=== PATIENT | female | born 2000 | race Two or more races ===

== ENCOUNTER 2022-09-13 08:50 | Emergency (ER) | payer OTHER ==
[~2022-09-13] VITALS: Ht 154.9 cm; Wt 82.0 kg
[2022-09-13 09:28] LABS: Urine Bacteria NONE SEEN /hpf (None Seen); Urine Blood TRACE /uL (Negative); Urine Hyaline Cast FEW /lpf (0 - 2); Urine Mucus FEW (None Seen); Urine Specific Gravity 1.026 (1.001-1.035); Urine WBC 1 /hpf (0 - 5)
[2022-09-13 10:03] VITALS: BP 130/85
[2022-09-13] MEDS ORDERED: ACETAMINOPHEN 500 MG TAB PO ONE (11:00)
[2022-09-13] MEDS ORDERED: IBUP800T27 PO (12:17)
[2022-09-13 12:42] LABS: Basophils # (auto) 0 10 ^3/uL (0-0.2); Basophils % (auto) 0.5 % (0.0-2.0); Eosinophils # (auto) 0 10 ^3/uL (0-0.8); Monocytes # (auto) 0.8 10 ^3/uL (0-1.3); Neutrophils # (auto) 6.9 10 ^3/uL (1.6-8.6)
[2022-09-13 12:44] LABS: Eosinophils % (auto) 0.1 % (0.0-7.0); Hemoglobin 12.5 g/dL (12.2-16.2); Lymphocytes # (auto) 1.3 10 ^3/uL (0.4-5.4); Lymphocytes % (auto) 14.1 % (10.0-50.0); Mean Corpuscular Hemoglobin 25.8 pg (28.0-32.0); Mean Corpuscular Hgb Conc. 33.8 g/dL (32.0-36.0); Mean Corpuscular Volume 76.3 fL (80.0-100.0); Monocytes % (auto) 9.1 % (0.0-12.0); Neutrophils % (auto) 76.2 % (37.0-80.0); Nucleated Red Blood Cells % 0.1 %; Red Blood Cells 4.85 10^6/uL (4.0-5.20); Red Cell Distribution Width 14.4 % (11.8-14.3)
[2022-09-13 13:17] LABS: BUN/Creatinine Ratio 15.1; Calcium 9.7 mg/dL (8.5-10.1); Potassium 3.9 mmol/L (3.5-5.1)
== END 2022-09-13 12:21 | disposition home or self-care (01) ==
LOC: ER 08:50
DX: R10.2 Pelvic and perineal pain (principal); Z88.8 Allergy status to other drugs, medicaments and biological substances; Z87.42 Personal history of other diseases of the female genital tract
CPT/HCPCS: 36415; 76830; 76856; 80048; 81001; 81025; 85025

== ENCOUNTER 2024-02-27 08:41 | Emergency (ER) | payer MEDICAID, OTHER ==
[~2024-02-27] VITALS: Ht 165.1 cm; Wt 81.6 kg
[~2024-02-27 08:41] MED LIST: IBUP-1456 PO
[2024-02-27 09:36] LABS: Basophils # (auto) 0.1 10 ^3/uL (0-0.2); Eosinophils # (auto) 0.2 10 ^3/uL (0-0.8); Eosinophils % (auto) 2.3 % (0.0-7.0); Monocytes # (auto) 0.8 10 ^3/uL (0-1.3)
[2024-02-27 09:38] LABS: Basophils % (auto) 1.1 % (0.0-2.0); Hematocrit 39.4 % (36.0-46.0); Hemoglobin 13.2 g/dL (12.2-16.2); Lymphocytes # (auto) 3.1 10 ^3/uL (0.4-5.4); Lymphocytes % (auto) 41.2 % (10.0-50.0); Mean Corpuscular Hemoglobin 26.4 pg (28.0-32.0); Mean Corpuscular Hgb Conc. 33.6 g/dL (32.0-36.0); Mean Corpuscular Volume 78.7 fL (80.0-100.0); Monocytes % (auto) 11.1 % (0.0-12.0); Neutrophils # (auto) 3.3 10 ^3/uL (1.6-8.6); Neutrophils % (auto) 44.3 % (37.0-80.0); Red Cell Distribution Width 13.4 % (11.8-14.3); White Blood Cell 7.5 10^3/uL (4.4-10.8)
[2024-02-27 09:56] LABS: Alanine Aminotransferase 83 U/L (7-40); Alkaline Phosphatase 70 U/L (46-116); Anion Gap 3 (5-15); Aspartate Aminotransferase 51 U/L (13-40); BUN/Creatinine Ratio 12.3 (10.0-20.0); Blood Urea Nitrogen 8 mg/dL (9-23); Calcium 9.8 mg/dL (8.5-10.1); Carbon Dioxide 28 mmol/L (20-30); Chloride 107 mmol/L (98-107); Glucose 104 mg/dL (74-106); Potassium 3.6 mmol/L (3.5-5.1); Sodium 138 mmol/L (136-145)
[2024-02-27 09:57] LABS: Bilirubin, Total 0.3 mg/dL (0.2-1.0); Total Protein 8.2 g/dL (5.7-8.2)
[2024-02-27 10:36] LABS: Lipase 42 U/L (12-53)
[2024-02-27 11:01] LABS: Urine Bacteria FEW /hpf (None Seen); Urine Blood TRACE /uL (Negative); Urine Clarity Clear (Clear); Urine Color Yellow (Yellow); Urine Mucus FEW (None Seen); Urine Protein, UAD TRACE (Negative); Urine Specific Gravity 1.029 (1.001-1.035); Urine Urobilinogen Normal (Negative); Urine WBC 8 /hpf (0 - 5)
[2024-02-27] MEDS ORDERED: ZOFR4T PO (12:28)
[2024-02-27] MEDS ORDERED: CIPR-173 PO (12:28)
[2024-02-27 13:04] VITALS: BP 133/85; PULSE 60; RESP 18; TEMP 97.8; O2SAT 100
== END 2024-02-27 13:05 | disposition home or self-care (01) ==
LOC: ER 08:41
DX: N39.0 Urinary tract infection, site not specified (principal); J45.909 Unspecified asthma, uncomplicated; Z32.02 Encounter for pregnancy test, result negative; Z88.6 Allergy status to analgesic agent
CPT/HCPCS: 36415; 74176; 80053; 81001; 81025; 83690; 85025

== ENCOUNTER 2024-09-10 18:33 | Emergency (ER) | payer MEDICAID ==
[~2024-09-10] VITALS: Ht 157.5 cm; Wt 79.9 kg
[~2024-09-10 18:33] MED LIST changes: +CIPR-173 PO; +ZOFR4T PO
[2024-09-10 20:05] VITALS: BP 124/68; PULSE 84; RESP 17; TEMP 98.6; O2SAT 99
[2024-09-10 20:58] LABS: COVID19 ANTIGEN SOFIA FIA NEGATIVE (NEGATIVE)
[2024-09-10 20:59] LABS: Rapid Influenza A Negative (Negative); Rapid Influenza B Negative (Negative)
--- NOTE | 2024-09-10 21:05 | ED.PDOC ---
Eye-HPI HPI Comments THIS IS A 11 WEEK 23-YEAR-OLD FEMALE PRESENTS TO THE ED WITH FLU-LIKE SYMPTOMS X3 DAYS. PATIENT REPORTS DICKINSON, NASAL CONGESTION AND COUGH.. HAS NOT TAKEN ANYTHING [id number] SHE STATES SHE IS SCARED BECAUSE SHE HAS 13 WEEKS . SHE DENIES VOMITING, DIARRHEA, CHEST PAIN, DIFFICULTY BREATHING, SHORTNESS OF BREATH, ABDOMINAL PAIN, VAGINAL BLEEDING, OR VAGINAL SPOTTING. Chief Complaint: Flu like Time Seen by MD: 18:49 Primary Care Provider: UNK Reviewed Notes: Nurses Notes, Medications, Allergies Allergies: Coded Allergies: Azithromycin (Verified Allergy, Unknown, 09/10/24) Home Meds Active Scripts Fluticasone Propionate (Nasal) (Flonase Allergy Relief) 50 Mcg/Act Spr, 50 MCG NA BID for 14 Days, #1 INJ 1 SPRAY NASALLY IN EACH NOSTRIL TWICE DAILY Prov:JOHNATHON CRISOSTOMO DENITRATOR OPERATOR 09/10/24 Ciprofloxacin Hcl (Cipro) 500 Mg Tab, 1 TAB PO BID, #14 TAB Prov:MANJEET WILSON MD 02/27/24 Ondansetron Odt 4MG Tab (ZOFRAN PO) 4 Mg Tb, 4 MG PO Q8HP PRN for 5 Days, #15 TAB ODT TAB-DISSOLVE IN MOUTH, THEN SWALLOW Prov:MANJEET WILSON MD 02/27/24 Ibuprofen (Ibuprofen) 800 Mg Tab, 1 TAB PO TID, #30 TAB Prov:AMY RODRIGUEZ 09/13/22 Information Source: Patient Mode of Arrival: Ambulatory Past Medical History PAST MEDICAL HISTORY: Asthma, Liver Surgical History: Denies all surgeries INFORMATION SYSTEMS OPERATOR History: Denies all INFORMATION SYSTEMS OPERATOR Hx Family History Family History: Reviewed,noncontributory to illness Social History Smoker: Non-Smoker Alcohol: Denies ETOH Use Drugs: Denies Drug Use Lives In: Home Constitutional: reports: fever; denies: chills, diaphoresis, fatigue, malaise, sweats, weakness, others EENTM: reports: nasal discharge; denies: blurred vision, double vision, ear bleeding, ear discharge, ear drainage, ear pain, ear ringing, eye pain, eye redness, hearing loss, mouth pain, mouth swelling, nose bleeding, nose congestio n, nose pain, photophobia, tearing, throat pain, throat swelling, voice changes, others Respiratory: reports: cough; denies: hemoptysis, orthopnea, SOB at rest, shortness of breath, SOB with excertion, stridor, wheezing, others Cardiovascular: denies: chest pain, dizzy spells, diaphoresis, Dyspnea on exertion, edema, irregular heart beat, left arm pain, lightheadedness, palpitations, PND, syncope, others Gastrointestinal: reports: others (HEART BURN); denies: abdomen distended, abdominal pain, blood streaked bowels, constipated, diarrhea, dysphagia, difficulty swallowing, hematemesis, melena, nausea, poor appetite, poor fluid intake, rectal bleeding, rectal pain, vomiting Genitourinary: denies: abnormal vagina bleeding, burning, dyspareunia, dysuria, flank pain, frequency, hematuria, incontinence, pain, , vagina discharge, urgency, others Neurological: denies: dizziness, fainting, headache, left sided numbness, left sided weakness, numbness, paresthesia, pre-existing deficit, right sided numbness, right sided weakness, seizure, speech problems, tingling, tremors, weakness, others Musculoskeletal: denies: back pain, gout, joint pain, joint swelling, muscle pain, muscle stiffness, neck pain, others Integumetry: denies: bruises, change in color, change in hair/nails, dryness, laceration, lesions, lumps, rash, wounds, others Allergic/Immunocompromised: denies: Difficulty Healing, Frequent Infections, Hives, Itching, others Hematologic/Lymphatic: denies: anemia, blood clots, easy bleeding, easy bruising, swollen glands, others Endocrine: denies: excessive hunger, excessive sweating, excessive thirst, excessive urination, flushing, intolerance to cold, intolerance to heat, unexplained weight gain, unexplained weight loss, others Psychiatric: denies: anxiety, bipolar disorder, depression, hopeless, panic disorder, schizophrenia, sleepless, suicidal, others Physical Exam General Appearance: No Apparent Distress, Normal HEENT: Pharyngeal Erythema, TMs Normal Neck: Full Range of Motion, Non-Tender, Normal, Normal Inspection Respiratory: Lungs Clear, No Respiratory Distress, Normal Breath Sounds Cardiovascular: No Murmur, Normal Peripheral Pulses, Regular Rate/Rhythm Breast Exam: Deferred Gastrointestinal: No Organomegaly, Non Tender, No Pulsatile Mass, Normal Bowel Sounds, Soft Genitalia: Deferred Pelvic: Deferred Rectal: Deferred Extremities: Normal capillary refill, Normal inspection, Normal range of motion, Non-tender, No pedal edema Musculoskeletal : Apperance: Normal Neurologic: Alert, communications station manager II-XII nml as Tested, No Motor Deficits, Normal Affect, Normal Mood, No Sensory Deficits Cerebellar Function: Normal Reflexes: Normal Skin: Dry, Normal Color, Warm Lymphatic: No Adenopathy Was a procedure done? Was a procedure done?: No EENT DIFF Eye: N/A Sore Throat: Viral Pharyngitis X-Ray, Labs, Meds, VS Vital Signs Date Time Temp Pulse Resp B/P (MAP) Pulse Ox O2 Delivery O2 Flow Rate FiO2 09/10/24 20:05 84 17 99 Room Air 09/10/24 20:05 98.6 84 17 124/68 (86) 99 98.6 09/10/24 18:51 98.6 98 20 125/96 (106) 100 Lab Test 09/10/24 21:01 09/10/24 20:23 Range/Units Urine Color Light-yellow Yellow Urine Clarity Clear Clear Urine pH 6.5 5.0-9.0 Urine Specific [place] 1.015 1.001-1.035 Urine Protein Negative Negative Urine Ketones Negative Negative Urine Blood Negative Negative /uL Urine Nitrite Negative Negative Urine Bilirubin Negative Negative Urine Urobilinogen Normal Negative mg/dL Urine Leukocyte Esterase Negative Negative /uL Urine RBC <1 0 - 4 /hpf Urine WBC <1 0 - 5 /hpf Urine Squamous Epithelial Cells Few <5 /hpf Urine Bacteria Few H None Seen /hpf Urine Glucose Normal Normal mg/dL Influenza Type A Antigen Negative Negative Influenza Type B Antigen Negative Negative SARS-CoV-2 Antigen (Rapid) Negative NEGATIVE X-Ray, Labs, Meds, VS Comment FLU AND COVID SWABS NEGATIVE LIKELY ACUTE NASOPHARYNGITIS UA SHOWS POSITIVE BACTERIA. WE WILL TREAT FOR INFECTION. WE WILL START PATIENT ON KEFLEX 500 MG TWICE DAILY X5 DAYS. ADVISED TO REST INCREASE P.O. FLUIDS WITH ELECTROLYTES. FOLLOW UP WITH HER PCP IN 2-3 DAYS NECESSARY. ER RETURN PRECAUTIONS GIVEN. PATIENT AGREES WITH DISCHARGE PLAN OF CARE. Time of 1ST Reevaluation: 21:56 Reevaluation 1ST: Improved Patient Education/Counseling: Diagnosis, Treatment, Prognosis, Need For Follow Up Family Education/Counseling: No Family Present Departure 1 Departure Time of Disposition: 21:56 Impression: Primary Impression: Nasopharyngitis acute Additional Impression: Acute cystitis Qualified Codes: N30.00 - Acute cystitis without hematuria Disposition: HOME / SELF CARE / HOMELESS Condition: Stable e-Prescriptions Cephalexin Monohydrate (Cephalexin) 500 Mg Cap 1 CAP PO BID for 6 Days, #20 CAP Prov: JOHNATHON CRISOSTOMO 09/10/24 Fluticasone Propionate (Nasal) (Flonase Allergy Relief) 50 Mcg/Act Spr 50 MCG NA BID for 14 Days, #1 INJ 1 SPRAY NASALLY IN EACH NOSTRIL TWICE DAILY Prov: JOHNATHON CRISOSTOMO 09/10/24 Discharged With: Self Critical Care Note Critical Care Time?: No Stability Stability form required: JOHNATHON García Sep 10, 2024 21:05
[2024-09-10] MEDS ORDERED: FLUT1SPR5 (21:46)
[2024-09-10 21:49] LABS: Urine Bacteria FEW /hpf (None Seen); Urine Blood Negative /uL (Negative); Urine Clarity Clear (Clear); Urine Color Light-Yellow (Yellow); Urine Protein, UAD Negative (Negative); Urine Specific Gravity 1.015 (1.001-1.035); Urine Urobilinogen Normal (Negative); Urine WBC <1 /hpf (0 - 5); Urine pH 6.5 (5.0-9.0)
[2024-09-10] MEDS ORDERED: CEPH500C PO (21:58)
== END 2024-09-10 22:05 | disposition home or self-care (01) ==
LOC: ER 18:33
DX: O26.891 Other specified pregnancy related conditions, first trimester (principal); N30.00 Acute cystitis without hematuria; J00 Acute nasopharyngitis [common cold]; J45.909 Unspecified asthma, uncomplicated; Z79.1 Long term (current) use of non-steroidal anti-inflammatories (NSAID); Z88.1 Allergy status to other antibiotic agents; Z3A.13 13 weeks gestation of pregnancy; Z20.822 Contact with and (suspected) exposure to COVID-19
CPT/HCPCS: 36415; 81001; 87426; 87804

== ENCOUNTER 2025-08-26 22:47 | Emergency (ER) | payer MEDICAID ==
[~2025-08-26] VITALS: Ht 157.5 cm; Wt 89.4 kg
[2025-08-26] MEDS: IPRATROPIUM BROM 0.5 MG/2.5ML INH SOL NEB ONE (23:28)
[2025-08-26] MEDS: ALBUTEROL SULF 2.5 MG/0.5ML(0.5%) NEB SOLN NEB ONE (23:28)
[2025-08-26 23:40] VITALS: BP 129/80; PULSE 106; RESP 17; TEMP 98.4; O2SAT 97
--- NOTE | 2025-08-27 00:08 | DVH ---
CHEST RADIOGRAPH Indication: SOB Technique: Frontal and lateral view of the chest was obtained Comparison: XR CHEST 1 VIEW on DOS: 07/08/24 FINDINGS: Lines and Tubes: None Lungs: Clear Pleura: No effusion. No pneumothorax. Cardiomediastinal contours: Unremarkable Bones: Unremarkable IMPRESSION: 1. No evidence of acute disease.
[2025-08-27] MEDS ORDERED: DOXY100C4 PO (00:16)
[2025-08-27] MEDS ORDERED: FLUT250M2 INH (00:16)
--- NOTE | 2025-08-27 00:17 | ED.PDOC ---
SOB-HPI Chief Complaint: Asthma Time Seen by MD: 22:52 Primary Care Provider: TAYLORK Reviewed notes: Nurses Notes, Medications, Allergies Information Source: Patient Mode of Arrival: Ambulatory Past Medical History PAST MEDICAL HISTORY: Asthma, Liver Surgical History: Denies all surgeries COLD ROLL CATCHER History: Denies all COLD ROLL CATCHER Hx Family History Family History: Reviewed,noncontributory to illness Social History Smoker: Non-Smoker Alcohol: Denies ETOH Use Drugs: Denies Drug Use Lives In: Home All Other Systems: Reviewed and Negative (SEE HPI) Physical Exam General Appearance: No Apparent Distress, Normal HEENT: Normal ENT Inspection, Pharynx Normal, TMs Normal Neck: Full Range of Motion, Non-Tender Respiratory: No Accessory Muscle Use, No Respiratory Distress, Wheezing Cardiovascular: No Edema, No JVD, No Murmur, No Gallop, Normal Peripheral Pulses, Regular Rate/Rhythm Breast Exam: Deferred Gastrointestinal: No Organomegaly, Non Tender, No Pulsatile Mass, Normal Bowel Sounds, Soft Genitalia: Deferred Pelvic: Deferred Rectal: Deferred Extremities: Normal capillary refill, Non-tender Musculoskeletal : Apperance: Normal Neurologic: Alert, No Motor Deficits, Normal Affect, Normal Mood, No Sensory Deficits Cerebellar Function: Normal Reflexes: Normal Skin: Dry, Normal Color, Warm Lymphatic: No Adenopathy Was a procedure done? Was a procedure done?: No Differential Dx Differential Diagnosis: Asthma, Bronchitis, Pneumonia X-Ray, Labs, Meds, VS Vital Signs Date Time Temp Pulse Resp B/P (MAP) Pulse Ox O2 Delivery O2 Flow Rate FiO2 08/26/25 23:40 98.4 106 17 129/80 (96) 97 98.4 08/26/25 23:40 106 17 97 Room Air 08/26/25 23:29 18 99 Room Air* 0 21 08/26/25 23:29 99 Room Air* 0 21 08/26/25 22:50 97.9 106 18 123/77 95 97.9 Current Medications Medications (Trade) Dose Ordered Sig/Kamari Route Start Time Stop Time Status Last Admin Albuterol (Ventolin Medneb) 5 mg ONCE ONCE NEB 08/26/25 23:15 08/26/25 23:16 DC 08/26/25 23:28 Ipratropium [place] (Atrovent Medneb) 0.5 mg ONCE ONCE NEB 08/26/25 23:15 08/26/25 23:16 DC 08/26/25 23:28 X-Ray, Labs, Meds, VS Comment Chest x-ray shows no acute cardiopulmonary findings. Patient notes improvement with nebulizer treatment x1. Patient requesting discharge at this time. Images Reviewed?: Images reviewed and evaluated by me Time of 1ST Reevaluation: 22:52 Reevaluation 1ST: Unchanged Time of 2ND Reevaluation: 00:16 Reevaluation 2ND: Improved Patient Education/Counseling: Diagnosis, Treatment, Need For Follow Up Family Education/Counseling: No Family Present SEPSIS Sepsis Screen Date sepsis recognized/suspect: Aug 26, 2025 Time Sepsis recognized/suspect: 2252 Recent Procedure: No On Antibiotic Therapy: No Respiratory Rate >20: No Heart Rate >90: No Temp<36 C (96.8 F) or >38.3 C: No SBP <90 or MAP <65 mmHG: No New Acute Mental Status Change: No Is the patient on CPAP, BIPAP,: No Physician Orders Chest Two Views Routine (08/26/25 23:11) Med Neb Initial Treatment (08/26/25 23:19) Vital Signs Date Time Temp Pulse Resp B/P (MAP) Pulse Ox O2 Delivery O2 Flow Rate FiO2 08/26/25 23:40 98.4 106 17 129/80 (96) 97 98.4 08/26/25 23:40 106 17 97 Room Air 08/26/25 23:29 18 99 Room Air* 0 21 08/26/25 23:29 99 Room Air* 0 21 08/26/25 22:50 97.9 106 18 123/77 95 97.9 Medications Medications Dose Ordered Sig/Kamari Route Start Time Stop Time Status Last Admin Dose Admin Albuterol 5 mg ONCE ONCE NEB 08/26/25 23:15 08/26/25 23:16 DC 08/26/25 23:28 Ipratropium [place] 0.5 mg ONCE ONCE NEB 08/26/25 23:15 08/26/25 23:16 DC 08/26/25 23:28 Departure 1 Departure Time of Disposition: 00:12 Impression: Primary Impression: Asthmatic bronchitis Qualified Codes: J45.21 - Mild intermittent asthma with (acute) exacerbation Disposition: 01 HOME / SELF CARE / HOMELESS Condition: Stable e-Prescriptions Doxycycline Hyclate (Doxycycline Hyclate) 100 Mg Cap 100 MG PO BID for 7 Days, #14 CAP Prov: ANDRESSA,JOHNATHON SAGGER PREPARER 08/27/25 Fluticasone-Salmeterol (Advair Diskus 250/50) 1 Puff Ih 1 PUFF INH BID for 14 Days, #1 INHALER Prov: JOHNATHON CRISOSTOMO 08/27/25 Discharged With: Self Critical Care Note Critical Care Time?: No Stability Stability form required: No Heart Score Heart Score: Heart Score Response (Comments) Value History N/A 0 EKG N/A 0 Age <45 0 Risk Factors N/A 0 Troponin N/A 0 Total 0 JOHNATHON CRISOSTOMO Aug 27, 2025 00:17
== END 2025-08-27 00:24 | disposition home or self-care (01) ==
LOC: ER 22:47
DX: J45.909 Unspecified asthma, uncomplicated (principal)
CPT/HCPCS: 71046; 94640